=== PATIENT | female | born 1965 ===

== ENCOUNTER 2016-12-03 12:32 | Inpatient (IN) | payer MEDICAID ==
[2016-11-21 12:35] VITALS: BMI 28.3
[2016-12-03] MEDS ORDERED: ceFAZolin IV 1 gm in Dextrose 1 GM/50 ML BAG IVPB ONE ×2 (12:42→13:43)
[2016-12-03] MEDS ORDERED: HEPARIN-NS 5,000 UNITS/500 ML 5,000 UNIT/500 ML BAG IV ONE (12:42)
[2016-12-03] MEDS ORDERED: Remifentanil 1 mg/3 ml Vial IV ONE (13:15)
[2016-12-03] MEDS ORDERED: Midazolam 2 MG/2 ML VIAL ONE (13:17)
[2016-12-03] MEDS ORDERED: Propofol 10 mg/ml Inj (20 ML) ONE ×2 (13:17→14:02)
[2016-12-03] MEDS ORDERED: Lidocaine 1% Inj (20ml) ONE (13:43)
[2016-12-03] MEDS ORDERED: HYDROmorphone 0.5 mg/0.5 ml ISec IVP PRN (16:56)
[2016-12-03] MEDS ORDERED: Sodium Chloride 0.9% 500 ML IV SCH (18:14)
[2016-12-03] MEDS ORDERED: Oxycodone/Acetaminophen 5/325 mg Tab PO PRN (18:14)
--- NOTE | 2016-12-03 20:51 | CP.PCM.CON ---
History of Present Illness - History of Present Illness History of Present Illness: CCM 51 yo female with hx HTN /HLD /Depression /Prior Suicide attempt /Asthma /TIA found with carotid stenosis and today had elective R CEA. Pt seen in ICU post- op admits right neck pain. Denied chest pain /sob /nausea.Pt had negative stress test pre-op. ROS- as noted All- ibuprofen Social-+ tob/ Denied etoh or drugs Meds- reviewed FH- Unknown PE T-98 P-84 R-13 BP 125/75 Alert female, nad Neck- R dressing intact Lungs- bilat bs Heart-rr BAd- benign eXt- no edema, nontender Neuro- nonfocal Labs,EKG,x-rays reviewed A&P s/p R CEA HTN HLD Asthma Hx TIA Depression cont meds analgesia prn monitor BP Incentive Spirometry smoking Cessation Surgery f/u DVT prophylaxis Past Patient History - Infectious Disease Hx of Infectious Diseases: None - Past Medical History & Family History Past Medical History?: Yes - Past Social History Smoking Status: Heavy Smoker > 10 Cigarettes Daily - CARDIAC Hx Cardiac Disorders: Yes Other/Comment: carotid stenosis right - PULMONARY Hx Respiratory Disorders: Yes Hx Asthma: Yes (was hospialized 3 years ago) - NEUROLOGICAL Hx Neurological Disorder: Yes Hx Dizziness: Yes Hx Syncope: Yes - RENAL Hx Kidney Stones: Yes Other/Comment: patient states that she was told to follow up with kidney doctor by primary doctor because of pain in kidneys - MUSCULOSKELETAL/RHEUMATOLOGICAL Hx Musculoskeletal Disorders: Yes Hx Arthritis: Yes Hx Back Pain: Yes Hx Falls: No Hx Herniated Disk: Yes (cervical thoraic lummbar) - GASTROINTESTINAL Hx Gastrointestinal Disorders: Yes Hx Gastritis: Yes Hx Gastroesophageal Reflux: Yes - GENITOURINARY/GYNECOLOGICAL Hx Genitourinary Disorders: Yes Hx Hematuria: Yes - PSYCHIATRIC Hx Substance Use: No - SURGICAL HISTORY Hx Surgeries: Yes Hx Appendectomy: Yes Hx Section: Yes Hx Orthopedic Surgery: Yes (right foot) Hx Tubal Ligation: Yes Other/Comment: tiubal ligation - ANESTHESIA Hx Anesthesia: Yes Hx Anesthesia Reactions: No Hx Malignant Hyperthermia: No Has any member of the family had a problem w/ anesthesia?: No Meds Allergies/Adverse Reactions: Allergies Allergy/AdvReac Type Severity Reaction Status Date / Time ibuprofen Allergy NAUSEA Verified 09/18/16 22:14 - Medications Medications: Current Medications Aspirin (Ecotrin) 325 mg PO DAILY ESTEPHANIA Hydromorphone HCl (Dilaudid) 0.5 mg IVP Q15M PRN PRN Reason: Pain, severe (8-10) Cefazolin Sodium/Dextrose (Ancef Iv 1 Gm Duplex) 1 gm in 50 mls @ 100 mls/hr IVPB Q8 ESTEPHANIA Stop: 12/04/16 06:29 Sodium Chloride (Sodium Chloride 0.9%) 500 mls @ 80 mls/hr IV .Q6H15M [facility] Oxycodone/Acetaminophen (Percocet 5/325 Mg Tab) 2 tab PO Q4H PRN PRN Reason: Pain, Mild (1-3) Stop: 12/06/16 18:15 Results - Vital Signs Recent Vital Signs: Last Vital Signs Temp 98 F 12/03/16 19:30 Pulse 80 12/03/16 20:11 Resp 12 12/03/16 20:00 BP 131/57 L 12/03/16 20:00 Pulse Ox 99 12/03/16 20:00 - Labs Labs: Laboratory Results - last 24 hr 12/03/16 13:05 Blood Type O POSITIVE Antibody Screen Negative Assessment & Plan (1) S/P carotid endarterectomy Status: Acute (2) HTN (hypertension) Status: Chronic (3) HLD (hyperlipidemia) Status: Chronic (4) Depression Status: Chronic Priority: High
[2016-12-03] MEDS: Sodium Chloride 0.9% 1,000 ML IV SCH (21:18)
[2016-12-03 21:35] LABS: BASO % 0.2 % (0.0-2.0); MEAN CELL VOLUME 88.5 fL (81.0-99.0)
[2016-12-03 21:39] LABS: CHLORIDE 101 mmol/L (98-107); HEMATOCRIT 33.7 % (34.0-47.0); LYMPH # 1.5 K/uL (1.0-4.3); LYMPH % 6.5 % (20.0-40.0); MEAN CORPUSCULAR HEMOGLOBIN 28.9 pg (27.0-31.0); MEAN CORPUSCULAR HGB CONC 32.7 g/dL (33.0-37.0); MEAN PLATELET VOLUME 6.9 fL (7.2-11.7); MONO % 4.5 % (0.0-10.0); PLATELET COUNT 372 K/uL (130-400); POTASSIUM 4.2 mmol/L (3.6-5.2); SODIUM 131 mmol/L (132-148)
[2016-12-03 21:42] LABS: BLOOD UREA NITROGEN 12 mg/dL (7-17); CARBON DIOXIDE 23 mmol/L (22-30); GFR AFRICAN-AMERICAN > 60
[2016-12-03 21:43] LABS: CALCIUM 7.5 mg/dl (8.6-10.4); GLUCOSE,RANDOM 154 mg/dL (65-105)
[2016-12-03 22:07] LABS: NEUTROPHIL 83 % (50-75); TOTAL CELLS COUNTED 100
[2016-12-03] MEDS: ceFAZolin IV 1 gm in Dextrose 1 GM/50 ML BAG IVPB SCH (22:44)
[2016-12-04] MEDS: Pantoprazole 40 mg EC Tab PO SCH ×2 (06:04→10:55)
[2016-12-04] MEDS: ceFAZolin IV 1 gm in Dextrose 1 GM/50 ML BAG IVPB SCH (06:05)
[2016-12-04] MEDS: Oxycodone/Acetaminophen 5/325 mg Tab PO PRN (06:10)
[2016-12-04 06:49] LABS: BASO # 0.1 K/uL (0.0-0.2); BASO % 0.5 % (0.0-2.0); EOS % 0.1 % (0.0-4.0); HEMATOCRIT 31.3 % (34.0-47.0); LYMPH # 2.5 K/uL (1.0-4.3); LYMPH % 15.5 % (20.0-40.0); MEAN CELL VOLUME 87.7 fL (81.0-99.0); MEAN CORPUSCULAR HGB CONC 34.2 g/dL (33.0-37.0); MEAN PLATELET VOLUME 6.9 fL (7.2-11.7); MONO % 6.2 % (0.0-10.0); RED CELL DISTRIBUTION WIDTH 13.9 % (11.5-14.5); WHITE BLOOD COUNT 15.8 K/uL (4.8-10.8)
[2016-12-04 06:57] LABS: CHLORIDE 100 mmol/L (98-107); POTASSIUM 4.2 mmol/L (3.6-5.2); SODIUM 132 mmol/L (132-148)
[2016-12-04 06:59] LABS: ALB/GLOB RATIO 1.1 (1.0-2.1); AST/SGOT 27 U/L (14-36); BILIRUBIN,TOTAL 0.8 mg/dL (0.2-1.3); CARBON DIOXIDE 25 mmol/L (22-30); GFR AFRICAN-AMERICAN > 60; TOTAL PROTEIN 6.1 g/dL (6.3-8.3)
--- NOTE | 2016-12-04 06:59 | OP ---
PROCEDURE DATE: 12/03/2016 PREOPERATIVE DIAGNOSIS: Right carotid stenosis. POSTOPERATIVE DIAGNOSIS: Right carotid stenosis. PROCEDURE PERFORMED: Right carotid endarterectomy. SURGEON: Jose Christianson MD LEVEL VIAL INSPECTOR AND TESTER: DANAE Tavares. ESTIMATED BLOOD LOSS: 250 mL. POSTOPERATIVE CONDITION: Stable. INDICATIONS FOR SURGERY: This is a 51-year-old female found to have high-grade right carotid stenosi s with symptoms including syncope. After preoperative workup by her special delivery messenger, she has been clear ed for a right carotid endarterectomy. GROSS FINDINGS: The procedure was complicated by a very high carotid bifurcation. The neck had to b e dissected proximally very high, including division of the digastric muscles and several blood vesse ls. The hypoglossal nerve was identified and preserved, although it often had to be protected during dissection. The internal carotid plaque was noted to extend distally, so a large portion of the int ernal carotid artery had to be dissected high into the neck in order to successfully accomplish the p rocedure. Basically, the dissection went well. Only 1 time did we encounter bleeding which was cont rolled with ligation. A LeMaitre patch was used to close the carotid. The procedure took approximat donovan 3-1/2 hours due mainly to the extensive dissection in order for good exposure. DESCRIPTION OF PROCEDURE: The patient was taken to the operating room. General anesthesia was admin istered. An arterial line was placed in the left wrist and the right neck was extended, prepped and draped. A standard neck exploration was made from just below the angle of the mandible all the way t o near the clavicle and along the anterior border of the sternocleidomastoid muscle. The common fenton tid artery was carefully dissected free proximally. It was found to be of very small caliber. It wa s then traced distally all the way to near the angle of the mandible. All blood vessels were divided between clamps using 3-0 and 4-0 silk ties and 4-0 silk ligatures. The digastric muscle belly also had to be divided between silk. The common carotid, external carotid, internal carotid and superior thyroid artery were all dissected free. The superior thyroid artery was looped with silk and the ext ernal carotid was found to be of small caliber and looped with a VessiLoop. Umbilical tape was place d around the common and internal carotid arteries. Heparin was then administered. Clamps were first placed on the internal carotid and then the remaining groups were occluded and a large clamp was tres lubna on the common. The common carotid was then opened using an 11 blade and Whitaker scissor onto the i nternal carotid. It had to be opened quite distally in order to completely encompass the large plaqu e. An [place] shunt was first placed proximally and then distally and secured with Rumel tourniquets. An endarterectomy using a [place] dissector was then carefully done, first proximally and then distal ly into the internal carotid. The plaque was eventually delivered and tacking sutures of 7-0 Prolene were placed distally in the internal carotid intima interface. The opened artery intima was then fl ushed with heparinized saline and any remaining loose plaque collections were extensively removed. O nce the vessel had been adequately cleaned and the proximal plaque was trimmed in the common carotid, a LeMaitre patch was then selected and sutured in place with a running 6-0 Prolene suture. Near the end of the suturing, the [place] shunt was removed and the artery was clamped. The remainder of the artery was sewn closed with a running 6-0 and the clamps were removed. There was some bleeding still in the carotid and through digital clamping of the common, enough control was obtained in order to m emerald the patch hemostatic using 6-0 Prolene sutures. Once the patch was hemostatic, there was then no trina to be some bleeding proximally from a loose vein and this was clamped and ligated with 3-0 silk. The neck was then irrigated with copious amounts of saline solution. It should be noted that, in or ericka to gain more distal exposure in the neck of the internal carotid, a part of the parotid had to be divided using the Bovie with careful attention to avoid injury of the facial nerve. Utilizing an ad jacent tissue transfer closure, several layers of heavy Vicryl were used and the distal lobe of the p arotid was reapproximated also using Monocryl. The anterior border of the sternocleidomastoid was cl osed with a running heavy Monocryl. The subcutaneous tissue was mobilized and closed with Monocryl a nd loosely with clips. The remaining portion of the wound was closed with Steri-Strips and Mastisol solution. A Bryant drain was left near the chest and brought out through a lateral stab wound prior to closure. The patient tolerated procedure well, returned to recovery room in stable condition. Jose Christianson MD cc: [id number] TT: 12/04/2016 06:59:17 tn
[2016-12-04 07:00] LABS: ALKALINE PHOSPHATASE 50 U/L (38-126); ALT/SGPT 22 U/L (9-52); BLOOD UREA NITROGEN 10 mg/dL (7-17); CALCIUM 7.5 mg/dl (8.6-10.4); GLUCOSE,RANDOM 118 mg/dL (65-105); MAGNESIUM 1.6 mg/dL (1.6-2.3); PHOSPHOROUS 3.4 mg/dL (2.5-4.5)
--- NOTE | 2016-12-04 08:30 | RAD ---
PROCEDURE: Limited chest radiograph HISTORY: R/O FB IN OR MISSING NEEDLE FROM TRAY COMPARISON: 10/18/2016 TECHNIQUE: Single AP radiograph of the neck and upper thorax FINDINGS: No radiopaque foreign body is identified on this single film. An error tracheal tube is noted above the tracheal vernon. Surgical lakesha are noted on the right side of the neck. A surgical drain is seen overlying the right lung apex/lower right neck. IMPRESSION: No radiopaque foreign body identified.
[2016-12-04] MEDS ORDERED: Albuterol-Ipratrop 3 mg / 0.5 (3 ml) UD INH PRN (09:34)
[2016-12-04] MEDS: SYMBICORT INH SCH ×2 (11:00→22:36)
[2016-12-04] MEDS: Aspirin 325 mg EC Tablets PO SCH (11:00)
--- NOTE | 2016-12-04 11:16 | CP.PCM.CON ---
History of Present Illness - History of Present Illness History of Present Illness: 51-year-old lady with history of hypertension and mixed hyperlipidemia, was admitted electively for carotid endarterectomy that was done yesterday was no complication. Prior to the surgery she underwent a stress test and echocardiogram at [facility]. It was with no ischemia and ejection fraction about 70% no aortic stenosis. Currently in the intensive care unit postop doing well, pain management and follow-up by surgery. Review of Systems - Constitutional Constitutional: Anorexia, Weakness - EENT Eyes: absent: Discharge Ears: absent: Ear Discharge, Dizziness Nose/Mouth/Throat: absent: Epistaxis - Cardiovascular Cardiovascular: absent: Acrocyanosis, Chest Pain, Diaphoresis, Leg Edema, Palpitations, Syncope - Respiratory Respiratory: absent: Cough, Dyspnea, Hemoptysis - Gastrointestinal Gastrointestinal: absent: Abdominal Pain, Diarrhea, Vomiting - Genitourinary Genitourinary: absent: Change in Urinary Stream Past Patient History - Infectious Disease Hx of Infectious Diseases: None - Past Medical History & Family History Past Medical History?: Yes - Past Social History Smoking Status: Heavy Smoker > 10 Cigarettes Daily - CARDIAC Hx Cardiac Disorders: Yes Other/Comment: carotid stenosis right - PULMONARY Hx Respiratory Disorders: Yes Hx Asthma: Yes (was hospialized 3 years ago) - NEUROLOGICAL Hx Neurological Disorder: Yes Hx Dizziness: Yes Hx Syncope: Yes - RENAL Hx Kidney Stones: Yes Other/Comment: patient states that she was told to follow up with kidney doctor by primary doctor because of pain in kidneys - MUSCULOSKELETAL/RHEUMATOLOGICAL Hx Musculoskeletal Disorders: Yes Hx Arthritis: Yes Hx Back Pain: Yes Hx Falls: No Hx Herniated Disk: Yes (cervical thoraic lummbar) - GASTROINTESTINAL Hx Gastrointestinal Disorders: Yes Hx Gastritis: Yes Hx Gastroesophageal Reflux: Yes - GENITOURINARY/GYNECOLOGICAL Hx Genitourinary Disorders: Yes Hx Hematuria: Yes - PSYCHIATRIC Hx Substance Use: No - SURGICAL HISTORY Hx Surgeries: Yes Hx Appendectomy: Yes Hx Section: Yes Hx Orthopedic Surgery: Yes (right foot) Hx Tubal Ligation: Yes Other/Comment: tiubal ligation - ANESTHESIA Hx Anesthesia: Yes Hx Anesthesia Reactions: No Hx Malignant Hyperthermia: No Has any member of the family had a problem w/ anesthesia?: No Meds Allergies/Adverse Reactions: Allergies Allergy/AdvReac Type Severity Reaction Status Date / Time ibuprofen Allergy NAUSEA Verified 09/18/16 22:14 - Medications Medications: Current Medications Acetaminophen (Tylenol 325mg Tab) 650 mg PO Q4 PRN PRN Reason: Pain, Mild (1-3) Last Admin: 12/04/16 02:28 Dose: 650 mg Aspirin (Ecotrin) 325 mg PO DAILY [facility] Last Admin: 12/04/16 11:00 Dose: 325 mg Home Med (Patient's Own Inhalation Solution) 1 ml INH RBID [facility] Last Admin: 12/04/16 11:00 Dose: 1 ml Hydromorphone HCl (Dilaudid) 0.5 mg IVP Q15M PRN PRN Reason: Pain, severe (8-10) Last Admin: 12/03/16 19:00 Dose: 0.5 mg Sodium Chloride (Sodium Chloride 0.9%) 1,000 mls @ 80 mls/hr IV .[id number] [facility] Last Admin: 12/03/16 21:18 Dose: 80 mls/hr Lorazepam (Ativan) 1 mg PO TID PRN PRN Reason: Anxiety Oxycodone/Acetaminophen (Percocet 5/325 Mg Tab) 1 tab PO Q4H PRN PRN Reason: Pain, moderate (4-7) Stop: 12/06/16 21:47 Last Admin: 12/04/16 06:10 Dose: 1 tab Pantoprazole Sodium (Protonix Ec Tab) 40 mg PO DAILY [facility] Last Admin: 12/04/16 10:55 Dose: Not Given Quetiapine Fumarate (Seroquel) 50 mg PO HS PRN PRN Reason: Insomnia Thiamine HCl (Vitamin B1 Tab) 100 mg PO DAILY [facility] Last Admin: 12/04/16 10:59 Dose: 100 mg Physical Exam - Constitutional Appears: Non-toxic - Head Exam Head Exam: ATRAUMATIC - Eye Exam Eye Exam: EOMI - ENT Exam ENT Exam: Mucous Membranes Moist - Neck Exam Neck exam: Negative for: Lymphadenopathy, Thyromegaly - Respiratory Exam Respiratory Exam: Clear to Auscultation Bilateral. absent: Rales, Wheezes - Cardiovascular Exam Cardiovascular Exam: REGULAR RHYTHM. absent: Systolic Murmur - GI/Abdominal Exam GI & Abdominal Exam: Normal Bowel Sounds. absent: Organomegaly - Rectal Exam Rectal Exam: Deferred - Extremities Exam Extremities exam: Positive for: normal capillary refill. Negative for: calf tenderness - Neurological Exam Neurological exam: Alert, Oriented x3 - Psychiatric Exam Psychiatric exam: Anxious - Skin Skin Exam: Dry Results - Vital Signs Recent Vital Signs: Last Vital Signs Temp 98.2 F 12/04/16 00:00 Pulse 76 12/04/16 07:00 Resp 12 12/04/16 07:00 BP 139/74 12/04/16 06:00 Pulse Ox 94 L 12/04/16 07:00 - Labs Result Diagrams: 12/04/16 06:41 12/04/16 06:41 Labs: Laboratory Results - last 24 hr 12/03/16 12/03/16 12/03/16 13:05 21:28 21:28 WBC 23.0 H D RBC 3.81 Hgb 11.0 D Hct 33.7 L MCV 88.5 MCH 28.9 MCHC 32.7 L RDW 14.0 Plt Count 372 MPV 6.9 L Neut % (Auto) 88.8 H Lymph % (Auto) 6.5 L [place] % (Auto) 4.5 Eos % (Auto) 0.0 Baso % (Auto) 0.2 Neut # 20.4 H Lymph # 1.5 [place] # 1.0 H Eos # 0.0 Baso # 0.0 Neutrophils % (Manual) 83 H Band Neutrophils % 7 H Lymphocytes % (Manual) 6 L Monocytes % (Manual) 4 Platelet Estimate Normal Sodium 131 L Potassium 4.2 Chloride 101 Carbon Dioxide 23 Anion Gap 11 BUN 12 Creatinine 0.7 Est GFR ( Amer) > 60 Est GFR (Non-Af Amer) > 60 Random Glucose 154 H Calcium 7.5 L Phosphorus Magnesium Total Bilirubin AST ALT Alkaline Phosphatase Total Protein Albumin Globulin Albumin/Globulin Ratio Blood Type O POSITIVE Antibody Screen Negative 12/04/16 12/04/16 06:41 06:41 WBC 15.8 H RBC 3.57 L Hgb 10.7 L Hct 31.3 L MCV 87.7 MCH 30.0 MCHC 34.2 RDW 13.9 Plt Count 317 MPV 6.9 L Neut % (Auto) 77.7 H Lymph % (Auto) 15.5 L [place] % (Auto) 6.2 Eos % (Auto) 0.1 Baso % (Auto) 0.5 Neut # 12.3 H Lymph # 2.5 [place] # 1.0 H Eos # 0.0 Baso # 0.1 Neutrophils % (Manual) Band Neutrophils % Lymphocytes % (Manual) Monocytes % (Manual) Platelet Estimate Sodium 132 Potassium 4.2 Chloride 100 Carbon Dioxide 25 Anion Gap 12 BUN 10 Creatinine 0.6 L Est GFR ( Amer) > 60 Est GFR (Non-Af Amer) > 60 Random Glucose 118 H Calcium 7.5 L Phosphorus 3.4 Magnesium 1.6 Total Bilirubin 0.8 AST 27 ALT 22 Alkaline Phosphatase 50 Total Protein 6.1 L Albumin 3.2 L Globulin 2.9 Albumin/Globulin Ratio 1.1 Blood Type Antibody Screen Assessment & Plan (1) S/P carotid endarterectomy Status: Acute (2) HLD (hyperlipidemia) Status: Chronic (3) HTN (hypertension) Status: Chronic
[2016-12-04] MEDS: Sodium Chloride 0.9% 1,000 ML IV SCH ×2 (12:13→22:37)
--- NOTE | 2016-12-04 14:00 | CP.CCUPN ---
<Prashant Curry - Last Filed: 12/04/16 14:02> CCU Subjective - Physician Review Subjective (Free Text): 12/04/16 13:55 PGY-1 ICU progress note Pt seen and examined at bedside. POD#1 from R CEA. Admits to some pain but states its tolerable. Denies fevers, chills, chest pain, sob, nausea or vomiting. Critical Care Time Spent (in minutes): 35 CCU Objective - Vital Signs / Intake & Output Intake and Output (Last 8hrs): Intake & Output 12/03/16 12/04/16 12/04/16 22:59 06:59 14:59 Intake Total 510 660 475 Output Total 550 330 655 Balance -40 330 -180 Intake: IV 350 Intake, IV Amount 160 660 400 Left Hand 320 Right Antecubital 160 660 80 Oral 75 Output: Urine 550 330 655 Urethral (Umaña) 250 330 655 Other: Voiding Method Indwelling Catheter - Physical Exam Head: Positive for: Atraumatic, Normocephalic Pupils: Positive for: PERRL Neck: Positive for: Other (bandage in place. C/D/I) Respiratory/Chest: Positive for: Clear to Auscultation, Good Air Exchange Cardiovascular: Positive for: Normal S1, S2 Abdomen: Positive for: Normal Bowel Sounds. Negative for: Tenderness, Distention Upper Extremity: Positive for: NORMAL PULSES, Neurovascularly Intact Lower Extremity: Positive for: NORMAL PULSES, Neurovascularly Intact Neurological: Positive for: Speech Normal, Motor Func Grossly Intact Skin: Positive for: Warm, Dry Psychiatric: Positive for: Alert, Oriented x 3 - Medications Active Medications: Active Medications Generic Name Dose Route Start Last Admin Trade Name Freq PRN Reason Stop Dose Admin Acetaminophen 650 mg 12/03/16 22:04 12/04/16 12:05 Tylenol 325mg Tab PO 650 mg Q4 PRN Administration Pain, Mild (1-3) Aspirin 325 mg 12/04/16 10:00 12/04/16 11:00 Ecotrin PO 325 mg DAILY ESTEPHANIA Administration Home Med 1 ml 12/04/16 10:30 12/04/16 11:00 Patient's Own Inhalation Solution INH 1 ml RBID ESTEPHANIA Administration Hydromorphone HCl 0.5 mg 12/03/16 16:56 12/03/16 19:00 Dilaudid IVP 0.5 mg Q15M PRN Administration Pain, severe (8-10) Sodium Chloride 1,000 mls @ 80 mls/hr 12/03/16 21:15 12/04/16 12:13 Sodium Chloride 0.9% IV 80 mls/hr .[id number] ESTEPHANIA Administration Lorazepam 1 mg 12/03/16 23:50 Ativan PO TID PRN Anxiety Oxycodone/Acetaminophen 1 tab 12/03/16 21:46 12/04/16 06:10 Percocet 5/325 Mg Tab PO 12/06/16 21:47 1 tab Q4H PRN Administration Pain, moderate (4-7) Pantoprazole Sodium 40 mg 12/04/16 10:00 12/04/16 10:55 Protonix Ec Tab PO Not Given DAILY ESTEPHANIA Quetiapine Fumarate 50 mg 12/03/16 23:49 Seroquel PO HS PRN Insomnia Thiamine HCl 100 mg 12/04/16 10:00 12/04/16 10:59 Vitamin B1 Tab PO 100 mg DAILY ESTEPHANIA Administration - Patient Studies Lab Studies: Lab Studies 12/04/16 12/04/16 12/03/16 Range/Units 06:41 06:41 21:28 WBC 15.8 H 23.0 H D (4.8-10.8) K/uL RBC 3.57 L 3.81 (3.80-5.20) Mil/uL Hgb 10.7 L 11.0 D (11.0-16.0) g/dL Hct 31.3 L 33.7 L (34.0-47.0) % MCV 87.7 88.5 (81.0-99.0) fL MCH 30.0 28.9 (27.0-31.0) pg MCHC 34.2 32.7 L (33.0-37.0) g/dL RDW 13.9 14.0 (11.5-14.5) % Plt Count 317 372 (130-400) K/uL MPV 6.9 L 6.9 L (7.2-11.7) fL Neut % (Auto) 77.7 H 88.8 H (50.0-75.0) % Lymph % (Auto) 15.5 L 6.5 L (20.0-40.0) % [place] % (Auto) 6.2 4.5 (0.0-10.0) % Eos % (Auto) 0.1 0.0 (0.0-4.0) % Baso % (Auto) 0.5 0.2 (0.0-2.0) % Neut # 12.3 H 20.4 H (1.8-7.0) K/uL Lymph # 2.5 1.5 (1.0-4.3) K/uL [place] # 1.0 H 1.0 H (0.0-0.8) K/uL Eos # 0.0 0.0 (0.0-0.7) K/uL Baso # 0.1 0.0 (0.0-0.2) K/uL Neutrophils % (Manual) 83 H (50-75) % Band Neutrophils % 7 H (0-2) % Lymphocytes % (Manual) 6 L (20-40) % Monocytes % (Manual) 4 (0-10) % Platelet Estimate Normal (NORMAL) Sodium 132 (132-148) mmol/L Potassium 4.2 (3.6-5.2) mmol/L Chloride 100 (98-107) mmol/L Carbon Dioxide 25 (22-30) mmol/L Anion Gap 12 (10-20) BUN 10 (7-17) mg/dL Creatinine 0.6 L (0.7-1.2) MG/DL Est GFR ( Amer) > 60 Est GFR (Non-Af Amer) > 60 Random Glucose 118 H (65-105) mg/dL Calcium 7.5 L (8.6-10.4) mg/dl Phosphorus 3.4 (2.5-4.5) mg/dL Magnesium 1.6 (1.6-2.3) mg/dL Total Bilirubin 0.8 (0.2-1.3) mg/dL AST 27 (14-36) U/L ALT 22 (9-52) U/L Alkaline Phosphatase 50 (38-126) U/L Total Protein 6.1 L (6.3-8.3) g/dL Albumin 3.2 L (3.5-5.0) g/dL Globulin 2.9 (2.2-3.9) gm/dL Albumin/Globulin Ratio 1.1 (1.0-2.1) Blood Type Antibody Screen 12/03/16 12/03/16 Range/Units 21:28 13:05 WBC (4.8-10.8) K/uL RBC (3.80-5.20) Mil/uL Hgb (11.0-16.0) g/dL Hct (34.0-47.0) % MCV (81.0-99.0) fL MCH (27.0-31.0) pg MCHC (33.0-37.0) g/dL RDW (11.5-14.5) % Plt Count (130-400) K/uL MPV (7.2-11.7) fL Neut % (Auto) (50.0-75.0) % Lymph % (Auto) (20.0-40.0) % [place] % (Auto) (0.0-10.0) % Eos % (Auto) (0.0-4.0) % Baso % (Auto) (0.0-2.0) % Neut # (1.8-7.0) K/uL Lymph # (1.0-4.3) K/uL [place] # (0.0-0.8) K/uL Eos # (0.0-0.7) K/uL Baso # (0.0-0.2) K/uL Neutrophils % (Manual) (50-75) % Band Neutrophils % (0-2) % Lymphocytes % (Manual) (20-40) % Monocytes % (Manual) (0-10) % Platelet Estimate (NORMAL) Sodium 131 L (132-148) mmol/L Potassium 4.2 (3.6-5.2) mmol/L Chloride 101 (98-107) mmol/L Carbon Dioxide 23 (22-30) mmol/L Anion Gap 11 (10-20) BUN 12 (7-17) mg/dL Creatinine 0.7 (0.7-1.2) MG/DL Est GFR ( Amer) > 60 Est GFR (Non-Af Amer) > 60 Random Glucose 154 H (65-105) mg/dL Calcium 7.5 L (8.6-10.4) mg/dl Phosphorus (2.5-4.5) mg/dL Magnesium (1.6-2.3) mg/dL Total Bilirubin (0.2-1.3) mg/dL AST (14-36) U/L ALT (9-52) U/L Alkaline Phosphatase (38-126) U/L Total Protein (6.3-8.3) g/dL Albumin (3.5-5.0) g/dL Globulin (2.2-3.9) gm/dL Albumin/Globulin Ratio (1.0-2.1) Blood Type O POSITIVE Antibody Screen Negative Laboratory Results - last 24 hr 12/03/16 12/03/16 12/03/16 13:05 21:28 21:28 WBC 23.0 H D RBC 3.81 Hgb 11.0 D Hct 33.7 L MCV 88.5 MCH 28.9 MCHC 32.7 L RDW 14.0 Plt Count 372 MPV 6.9 L Neut % (Auto) 88.8 H Lymph % (Auto) 6.5 L [place] % (Auto) 4.5 Eos % (Auto) 0.0 Baso % (Auto) 0.2 Neut # 20.4 H Lymph # 1.5 [place] # 1.0 H Eos # 0.0 Baso # 0.0 Neutrophils % (Manual) 83 H Band Neutrophils % 7 H Lymphocytes % (Manual) 6 L Monocytes % (Manual) 4 Platelet Estimate Normal Sodium 131 L Potassium 4.2 Chloride 101 Carbon Dioxide 23 Anion Gap 11 BUN 12 Creatinine 0.7 Est GFR ( Amer) > 60 Est GFR (Non-Af Amer) > 60 Random Glucose 154 H Calcium 7.5 L Phosphorus Magnesium Total Bilirubin AST ALT Alkaline Phosphatase Total Protein Albumin Globulin Albumin/Globulin Ratio Blood Type O POSITIVE Antibody Screen Negative 12/04/16 12/04/16 06:41 06:41 WBC 15.8 H RBC 3.57 L Hgb 10.7 L Hct 31.3 L MCV 87.7 MCH 30.0 MCHC 34.2 RDW 13.9 Plt Count 317 MPV 6.9 L Neut % (Auto) 77.7 H Lymph % (Auto) 15.5 L [place] % (Auto) 6.2 Eos % (Auto) 0.1 Baso % (Auto) 0.5 Neut # 12.3 H Lymph # 2.5 [place] # 1.0 H Eos # 0.0 Baso # 0.1 Neutrophils % (Manual) Band Neutrophils % Lymphocytes % (Manual) Monocytes % (Manual) Platelet Estimate Sodium 132 Potassium 4.2 Chloride 100 Carbon Dioxide 25 Anion Gap 12 BUN 10 Creatinine 0.6 L Est GFR ( Amer) > 60 Est GFR (Non-Af Amer) > 60 Random Glucose 118 H Calcium 7.5 L Phosphorus 3.4 Magnesium 1.6 Total Bilirubin 0.8 AST 27 ALT 22 Alkaline Phosphatase 50 Total Protein 6.1 L Albumin 3.2 L Globulin 2.9 Albumin/Globulin Ratio 1.1 Blood Type Antibody Screen EKG/Cardiology Studies: Cardiology / EKG Studies 12/04/16 18:15 ELECTROCARDIOGRAM DAILY Comment: Mode Of Transportation: Reason For Exam: SP Carotid Endarterwctomy 12/05/16 18:15 ELECTROCARDIOGRAM DAILY Comment: Mode Of Transportation: Reason For Exam: SP Carotid Endarterwctomy Review of Systems - Review of Systems All systems: reviewed and no additional remarkable complaints except (where noted in HPI) Critical Care Progress Note - Nutrition Nutrition: Nutrition Category Date Time Status Heart Healthy Diet [DIET] Diets 12/04/16 Lunch Active Assessment/Plan - Assessment and Plan (Free Text) Assessment: This is a 51 yo F POD#1 s/p right sided CEA. Plan: Pt doing well and hemodynamically stable. No overnight events. No bleeding. Labs unremarkable. Will transfer to med/surg. <Ugo Kirby S - Last Filed: 01/14/17 16:55> CCU Subjective - Physician Review Critical Care Time Spent (in minutes): 0 Critical Care Progress Note - Nutrition Nutrition: Nutrition Category Date Time Status Heart Healthy Diet [DIET] Diets 12/04/16 Lunch Active Attending/Attestation - Attestation I have personally seen and examined this patient.: Yes I have fully participated in the care of the patient.: Yes I have reviewed all pertinent clinical information: Yes Notes (Text): This is a 51 yo F POD#1 s/p right sided CEA. transfer to floor
[2016-12-05] MEDS: Oxycodone/Acetaminophen 5/325 mg Tab PO PRN ×4 (01:26→21:08)
[2016-12-05] MEDS: Aspirin 325 mg EC Tablets PO SCH (09:30)
[2016-12-05] MEDS: Pantoprazole 40 mg EC Tab PO SCH (09:30)
[2016-12-05] MEDS: Sodium Chloride 0.9% 1,000 ML IV SCH ×2 (14:05→23:15)
--- NOTE | 2016-12-05 14:21 | CP.PCM.PN ---
Subjective - Date & Time of Evaluation Date of Evaluation: 12/05/16 Time of Evaluation: 13:00 - Subjective Subjective: Out of bed ambulating, no weakness or neuro deficit, stable post carotid endarterectomy with pain. Follow up with surgery Objective - Vital Signs/Intake and Output Vital Signs (last 24 hours): Temp Pulse Resp BP Pulse Ox 98.2 F 103 H 18 146/90 96 12/05/16 07:05 12/05/16 13:35 12/05/16 07:05 12/05/16 13:35 12/05/16 07:05 Intake and Output: 12/05/16 12/05/16 06:59 18:59 Intake Total 1040 720 Balance 1040 720 - Medications Medications: Current Medications Acetaminophen (Tylenol 325mg Tab) 650 mg PO Q4 PRN PRN Reason: Pain, Mild (1-3) Last Admin: 12/05/16 05:20 Dose: 650 mg Aspirin (Ecotrin) 325 mg PO DAILY [facility] Last Admin: 12/05/16 09:30 Dose: 325 mg Home Med (Patient's Own Inhalation Solution) 1 ml INH RBID [facility] Last Admin: 12/04/16 22:36 Dose: 1 ml Hydromorphone HCl (Dilaudid) 0.5 mg IVP Q15M PRN PRN Reason: Pain, severe (8-10) Last Admin: 12/03/16 19:00 Dose: 0.5 mg Sodium Chloride (Sodium Chloride 0.9%) 1,000 mls @ 80 mls/hr IV .[id number] [facility] Last Admin: 12/05/16 14:05 Dose: Not Given Lorazepam (Ativan) 1 mg PO TID PRN PRN Reason: Anxiety Last Admin: 12/05/16 05:20 Dose: 1 mg Oxycodone/Acetaminophen (Percocet 5/325 Mg Tab) 1 tab PO Q4H PRN PRN Reason: Pain, moderate (4-7) Stop: 12/06/16 21:47 Last Admin: 12/05/16 09:30 Dose: 1 tab Pantoprazole Sodium (Protonix Ec Tab) 40 mg PO DAILY [facility] Last Admin: 12/05/16 09:30 Dose: 40 mg Quetiapine Fumarate (Seroquel) 50 mg PO HS PRN PRN Reason: Insomnia Thiamine HCl (Vitamin B1 Tab) 100 mg PO DAILY [facility] Last Admin: 12/05/16 09:31 Dose: 100 mg - Labs Labs: 12/04/16 06:41 12/04/16 06:41 - Constitutional Appears: Non-toxic - Head Exam Head Exam: ATRAUMATIC - Eye Exam Eye Exam: EOMI - ENT Exam ENT Exam: Mucous Membranes Moist - Neck Exam Neck Exam: absent: Lymphadenopathy, Thyromegaly - Respiratory Exam Respiratory Exam: Clear to Ausculation Bilateral. absent: Rales - Cardiovascular Exam Cardiovascular Exam: REGULAR RHYTHM, Murmur - GI/Abdominal Exam GI & Abdominal Exam: Normal Bowel Sounds. absent: Organomegaly - Rectal Exam Rectal Exam: Deferred - Extremities Exam Extremities Exam: Normal Capillary Refill. absent: Calf Tenderness - Neurological Exam Neurological Exam: Alert, Oriented x3 - Psychiatric Exam Psychiatric exam: Depressed - Skin Skin Exam: Dry Assessment and Plan (1) S/P carotid endarterectomy Status: Acute (2) HLD (hyperlipidemia) Status: Chronic (3) HTN (hypertension) Status: Chronic
[2016-12-05 16:14] VITALS: O2SAT 95
--- NOTE | 2016-12-05 22:56 | CARD ---
APPROVED REPORT EKG Measurement Heart [id number] <Conclusion> Normal sinus rhythm Normal ECG
[2016-12-06] MEDS ORDERED: Aluminum Hydroxide/Magnesium Hydroxide Susp (30 mL) PO PRN (00:16)
[2016-12-06 08:15] VITALS: BP 106/59; PULSE 89; RESP 18; TEMP 98.8
== END 2016-12-06 09:03 | disposition home or self-care (01) | DRG 839 ==
LOC: C.SDS 12:32 → C.9I 18:36 → C.6T 12-04 12:23
PROVIDERS: ADMIT Surgery; ATTEND Surgery
PROC: 03CK0ZZ Extirpation of Matter from Right Internal Carotid Artery, Open Approach (ICD-10-PCS; principal; 2016-12-03 14:00)
DX: I65.21 Occlusion and stenosis of right carotid artery (principal); I10 Essential (primary) hypertension; E78.2 Mixed hyperlipidemia; F32.9 Major depressive disorder, single episode, unspecified; J45.909 Unspecified asthma, uncomplicated; F17.210 Nicotine dependence, cigarettes, uncomplicated; Z86.73 Personal history of transient ischemic attack (TIA), and cerebral infarction without residual deficits; Z91.5 Personal history of self-harm

== ENCOUNTER 2016-12-17 11:49 | Emergency (ER) | payer MEDICAID ==
[2016-12-17 11:50] VITALS: BMI 28.3
[2016-12-17] MEDS ORDERED: Morphine 4 MG/ML VIAL ONE (13:30)
--- NOTE | 2016-12-17 13:31 | C.PDOC ---
History Of Present Illness 51 y/o female presents to ED with complaints of right side neck and face pain with headache unrelieved by Tylenol. Patient had a Carotid Endarterectomy on and was D/C home a few days after. She has had ongoing pain but worse past two days. She denies any numbness or weakness. Patient alsol denies fever , N/V/D, weakness or numbness. Time Seen by Provider: 12/17/16 12:39 Chief Complaint (Nursing): Medical Clearance History Per: Patient History/Exam Limitations: no limitations Onset/Duration Of Symptoms: Days Current Symptoms Are (Timing): Still Present Severity: Moderate Past Medical History Reviewed: Historical Data, Nursing Documentation, Vital Signs Vital Signs: Last Vital Signs Temp 97.8 F 12/17/16 16:54 Pulse 78 12/17/16 16:54 Resp 18 12/17/16 16:54 BP 113/72 12/17/16 16:54 Pulse Ox 100 12/17/16 17:38 - Medical History PMH: Anxiety, Arthritis, Asthma, Bipolar Disorder, Depression, Gastritis, Hypercholesterolemia, Kidney Stones Surgical History: Appendectomy, Carotid Endarterectomy - [facility] Procedures DX ULTRASOUND-HEART (01/21/15) EXTIRPATION OF MATTER FROM R INT CAROTID, OPEN APPROACH (12/03/16) GROUP PSYCHOTHERAPY (07/19/15) INDIVID PSYCHOTHERAP NEC (12/13/14) INDIVIDUAL PSYCHOTHERAPY, COGNITIVE-BEHAVIORAL (10/25/15) INDIVIDUAL PSYCHOTHERAPY, SUPPORTIVE (07/19/15) INJECT/INFUSE NEC (12/18/12) OTHER GROUP THERAPY (12/13/14) PSYCHIA INTERV/EVAL NEC (12/18/12) Family History: States: Unknown Family Hx - Social History Hx Tobacco Use: Yes Hx Alcohol Use: Yes Hx Substance Use: No Review Of Systems Constitutional: Negative for: Fever, Chills Cardiovascular: Negative for: Chest Pain Gastrointestinal: Negative for: Nausea, Vomiting, Diarrhea Musculoskeletal: Negative for: Neck Pain Neurological: Negative for: Weakness, Numbness Physical Exam - Physical Exam Appears: Non-toxic, No Acute Distress Skin: Normal Color, Warm Head: Atraumatic, Normacephalic Eye(s): bilateral: Normal Inspection, PERRL, EOMI Oral Mucosa: Moist Throat: Normal Neck: Normal ROM, Other (Extensive Right side, healing surgical scar, mild tenderness, no redness, no swelling) Cardiovascular: Rhythm Regular Respiratory: No Rales, No Rhonchi, No Wheezing Gastrointestinal/Abdominal: Soft, No Tenderness, No Guarding, No Rebound Extremity: Normal ROM Neurological/Psych: Oriented x3, Normal Speech, Normal Cognition, Normal Cranial Nerves, No Cerebellar Signs, Normal Motor ED Course And Treatment - Laboratory Results Result Diagrams: 12/17/16 13:34 12/17/16 13:34 O2 Sat by Pulse Oximetry: 100 (RA) Pulse Ox Interpretation: Normal - CT Scan/US Head CT/US Interpretation: Impression: Status post of right-sided carotid endarterectomy. There are surrounding soft tissue changes that may represent some on old postoperative residual hemorrhage and or granulation tissue which surrounds a good portion of the distal common carotid arteries, carotid bifurcation and proximal internal carotid artery as above. . Changes extend on about the surrounding tissues as above however there is no large hemorrhagic collection - hematoma. No evidence of contrast extravasation. The vessels are widely patent. These findings discussed with Dr. Mead at approximately 4: 23 p.m. with written down and read back verification. Medical Decision Making Medical Decision Making: Pain meds ordered Discussed with dr Christianson reports he had to do extensive dissection to expose the carotid, and recommended CTA to check for leaks or hematoma This was discussed with the pt CT ok pt seen by dr Cowart in the ED Plan dc home pain meds office f/u Disposition Counseled Patient/Family Regarding: Need For Followup - Disposition Referrals: Jose Christianson MD [Staff Provider] - Disposition: HOME/ ROUTINE Disposition Time: 17:34 Condition: GOOD Additional Instructions: Follow up with dr Ramos this week Prescriptions: oxyCODONE/Acetaminophen [Percocet 5/325 mg Tab] 1 tab PO Q4H PRN #30 tab PRN Reason: .severe pain Forms: General Discharge Instructions - Clinical Impression Clinical Impression: S/P carotid endarterectomy, Neck pain - Scribe Statement The provider has reviewed the documentation as recorded by the Damarisibmick Elizabeth All medical record entries made by the Scribe were at my direction and personally dictated by me. I have reviewed the chart and agree that the record accurately reflects my personal performance of the history, physical exam, medical decision making, and the department course for this patient. I have also personally directed, reviewed, and agree with the discharge instructions and disposition.
[2016-12-17 13:41] LABS: BASO # 0.1 K/uL (0.0-0.2); BASO % 1.1 % (0.0-2.0); EOS # 0.2 K/uL (0.0-0.7); EOS % 1.9 % (0.0-4.0); HEMATOCRIT 34.6 % (34.0-47.0); LYMPH # 2.8 K/uL (1.0-4.3); LYMPH % 21.7 % (20.0-40.0); MEAN CELL VOLUME 88.3 fL (81.0-99.0); MEAN CORPUSCULAR HEMOGLOBIN 28.9 pg (27.0-31.0); MEAN CORPUSCULAR HGB CONC 32.7 g/dL (33.0-37.0); MEAN PLATELET VOLUME 6.7 fL (7.2-11.7); MONO # 0.7 K/uL (0.0-0.8); MONO % 5.5 % (0.0-10.0); RED CELL DISTRIBUTION WIDTH 13.7 % (11.5-14.5); WHITE BLOOD COUNT 12.8 K/uL (4.8-10.8)
[2016-12-17 13:57] LABS: CHLORIDE 98 mmol/L (98-107); SODIUM 136 mmol/L (132-148)
[2016-12-17 13:58] LABS: POTASSIUM 4.3 mmol/L (3.6-5.2)
[2016-12-17 14:00] LABS: ALB/GLOB RATIO 1.3 (1.0-2.1); ALKALINE PHOSPHATASE 97 U/L (38-126); AST/SGOT 32 U/L (14-36); BILIRUBIN,TOTAL 0.5 mg/dL (0.2-1.3); BLOOD UREA NITROGEN 16 mg/dL (7-17); CALCIUM 9.2 mg/dl (8.6-10.4); CARBON DIOXIDE 27 mmol/L (22-30); GFR AFRICAN-AMERICAN > 60; GLUCOSE,RANDOM 93 mg/dL (65-105); TOTAL PROTEIN 7.4 g/dL (6.3-8.3)
[2016-12-17 14:01] LABS: ALT/SGPT 26 U/L (9-52)
[2016-12-17] MEDS ORDERED: Iodixanol 320 MG/ML 100 ML BOTTLE IV ONE (14:27)
--- NOTE | 2016-12-17 16:29 | CT ---
PROCEDURE: CT Angiography of the neck and brain dated 12/17/2016 HISTORY: s status post carotid surgery with facial pain and headache. COMPARISON: Correlation made with MRA neck 11/14/[address] scan brain 10/30/2016. Correlation also made with carotid Doppler exam dated 11/05/2016 TECHNIQUE: Contiguous helical/transaxial images of the neck were obtained from the level of the skull-base to the superior mediastinum in the arteriographic phase of enhancement. Coronal and sagittal reformats or also generated. IV contrast dose: 100 cc Visipaque 320 contrast material. Radiation Dose - DLP: 568.59 mGy-cm FINDINGS: Findings: Apparent n right internal carotid endarterectomy. . The right common carotid artery, carotid bifurcation and right internal carotid artery widely patent are some irregularities along the proximal margin of the distal of the right common carotid artery and proximal internal carotid artery internal carotid artery. . There appears to be some circumferential somewhat nonenhancing soft tissue density surrounding the mid and proximal internal carotid artery as well as the external carotid artery. No evidence of large hematoma. Soft tissue circumferentially also surrounds the distal and mid to lower common carotid artery. . There appears to be some extension into the right parapharyngeal fat space with soft tissue abutting the posterior margin of the right submandibular gland as well as medial margin of the deep lobe of the right parotid gland. Vague extension of changes abutting the anterior medial margin of the right sternocleidomastoid muscle. . These changes may represent some residual old postoperative hemorrhage and/or scarring -granulation tissue difficult to distinguish between the two. There is no evidence of a large hemorrhagic collection/hematoma. These changes do result in some effacement of surrounding subcutaneous fat and fascia planes however the. There may also be some minimal mass effect on the adjacent right medial margin of the lower oropharynx. No evidence of contrast extravasation. The left common carotid artery, carotid bifurcation and internal carotid artery widely patent. The distal internal carotids arteries including the petrous, cavernous and supraclinoid segments are patent. Both vertebral arteries are patent throughout. The visualized basilar artery and the remaining versus hoh Rg unremarkable. Lung apices are clear. Impression: Status post of right-sided carotid endarterectomy. There are surrounding soft tissue changes that may represent some on old postoperative residual hemorrhage and or granulation tissue which surrounds a good portion of the distal common carotid arteries, carotid bifurcation and proximal internal carotid artery as above. . Changes extend on about the surrounding tissues as above however there is no large hemorrhagic collection - hematoma. No evidence of contrast extravasation. The vessels are widely patent. These findings discussed with Dr. Mead at approximately 4:23 p.m. with written down and read back verification.
[2016-12-17 16:55] VITALS: BP 113/72; PULSE 78; RESP 18; TEMP 97.8
[2016-12-17] MEDS ORDERED: Oxycodone/Acetaminophen 5/325 mg Tab PO STA (17:16)
[2016-12-17 17:36] VITALS: O2SAT 100
[2016-12-17] MEDS ORDERED: Oxycodone/Acetaminophen 5/325 mg Tab ONE (17:36)
== END 2016-12-17 17:45 | disposition home or self-care (01) ==
LOC: C.ER 11:49
DX: M54.2 Cervicalgia (principal); Z98.890 Other specified postprocedural states
CPT/HCPCS: 70496; 70498; 80053; 85025; 96374; 99283; J2270; Q9967

== ENCOUNTER 2017-02-18 13:54 | Emergency (ER) | payer MEDICAID ==
[2017-02-18 13:54] VITALS: BMI 28.3
[2017-02-18 14:43] VITALS: BP 154/93; PULSE 98; RESP 20; TEMP 98.8; O2SAT 100
--- NOTE | 2017-02-18 15:13 | C.PDOC ---
History Of Present Illness 51 y/o female with Hx of ETOH abuse, Bipolar disorder and Overdose presents to ED with complaints of typical occipital headache. Patient states she took Tylenol and Ibuprofen at home earlier today. Patient states has no allergies to Ibuprofen but has occasional stomach upsets. No other complaints at this time. Time Seen by Provider: 02/18/17 15:02 Chief Complaint (Nursing): Headache History Per: Patient History/Exam Limitations: no limitations Onset/Duration Of Symptoms: Days Current Symptoms Are (Timing): Still Present Quality: "Pain" Past Medical History Reviewed: Historical Data, Nursing Documentation, Vital Signs Vital Signs: Last Vital Signs Temp 98.8 F 02/18/17 14:39 Pulse 98 H 02/18/17 14:39 Resp 20 02/18/17 14:39 BP 154/93 H 02/18/17 14:39 Pulse Ox 100 02/18/17 15:39 - Medical History PMH: Anxiety, Arthritis, Asthma, Bipolar Disorder, Depression, Gastritis, Hypercholesterolemia, Kidney Stones Surgical History: Appendectomy, Carotid Endarterectomy - [facility] Procedures DX ULTRASOUND-HEART (01/21/15) EXTIRPATION OF MATTER FROM R INT CAROTID, OPEN APPROACH (12/03/16) GROUP PSYCHOTHERAPY (07/19/15) INDIVID PSYCHOTHERAP NEC (12/13/14) INDIVIDUAL PSYCHOTHERAPY, COGNITIVE-BEHAVIORAL (10/25/15) INDIVIDUAL PSYCHOTHERAPY, SUPPORTIVE (07/19/15) INJECT/INFUSE NEC (12/18/12) OTHER GROUP THERAPY (12/13/14) PSYCHIA INTERV/EVAL NEC (12/18/12) Family History: States: Unknown Family Hx - Social History Hx Tobacco Use: Yes Hx Alcohol Use: Yes Hx Substance Use: No - Immunization History Hx Tetanus Toxoid Vaccination: No Hx Influenza Vaccination: No Hx Pneumococcal Vaccination: No Review Of Systems Except As Marked, All Systems Reviewed And Found Negative. Constitutional: Negative for: Fever, Chills Eyes: Negative for: Vision Change Gastrointestinal: Negative for: Nausea, Vomiting, Abdominal Pain, Diarrhea Skin: Negative for: Rash Neurological: Positive for: Headache. Negative for: Weakness, Numbness, Dizziness Physical Exam - Physical Exam Appears: Other (Sleeping) Skin: Normal Color, Warm, Dry, No Rash Head: Tenderness (Mild occipital trapezius ), No Swelling Eye(s): bilateral: Normal Inspection Oral Mucosa: Moist Neck: Normal ROM, Supple Cardiovascular: Rhythm Regular Respiratory: Normal Breath Sounds, No Rales, No Rhonchi, No Wheezing Gastrointestinal/Abdominal: Soft, No Tenderness, No Guarding, No Rebound Neurological/Psych: Oriented x3 ED Course And Treatment O2 Sat by Pulse Oximetry: 100 (RA) Pulse Ox Interpretation: Normal Reevaluation Time: 15:38 Reassessment Condition: Improved Medical Decision Making Medical Decision Making: typical headache, LOW susp of stroke/like headache inpt with resolved cartid dz NO ibuprofen allergy- provokes gastritis, but pt taking Motrin @ home, believing "ibuprofen" causes GI upset. continued alcohol use and anxiety- took her Ativan this AM Disposition Doctor Will See Patient In The: Office Counseled Patient/Family Regarding: Studies Performed, Diagnosis - Disposition Referrals: Kira Johnson MD [Medical Doctor] - Disposition: HOME/ ROUTINE Disposition Time: 15:39 Condition: GOOD Additional Instructions: continue Ibuprofen/Motrin 400-600 mg every 6 hours as needed Pepcid 20 mg @ night to prevent stomach irritation from the Motrin Alternate with Tylenol 1000 mg every 6 hours as needed. Continue your other regular meds. Follow-up with your PMD as needed Instructions: Acute Headache (ED) Forms: [employer] [facility] (Uzbek) - Clinical Impression Clinical Impression: Headache - Scribe Statement The provider has reviewed the documentation as recorded by the Israel Elizabeth All medical record entries made by the Damarisibmick were at my direction and personally dictated by me. I have reviewed the chart and agree that the record accurately reflects my personal performance of the history, physical exam, medical decision making, and the department course for this patient. I have also personally directed, reviewed, and agree with the discharge instructions and disposition.
== END 2017-02-18 15:49 | disposition home or self-care (01) ==
LOC: C.ER 13:54
DX: R51 Headache (principal)
CPT/HCPCS: 96372; 99285; J1885

== ENCOUNTER 2017-08-30 12:56 | Emergency (ER) | payer MEDICAID ==
[2017-08-30 12:56] VITALS: BMI 28.3
[2017-08-30 13:15] VITALS: O2SAT 100
--- NOTE | 2017-08-30 14:27 | C.PDOC ---
History Of Present Illness 52 years old female presents to ED with complaints of lower abdominal that began 3 days ago. Associated symptoms include frequent urination and vaginal discharge. Denies dysuria. Patient states she noticed a tinge of blood to her urine today which promoted the ED visit. Patient also reports right flank pain today. Time Seen by Provider: 08/30/17 13:31 Chief Complaint (Nursing): Abdominal Pain History Per: Patient History/Exam Limitations: no limitations Onset/Duration Of Symptoms: Days (3) Current Symptoms Are (Timing): Still Present Location Of Pain/Discomfort: RLQ, LLQ, Suprapubic Radiation Of Pain To:: None Quality Of Discomfort: Unable To Describe Associated Symptoms: Urinary Symptoms. denies: Fever, Chills, Nausea, Vomiting , Diarrhea Exacerbating Factors: None Alleviating Factors: None Recent travel outside of the [place]: No Abnormal Vaginal Bleeding: No Past Medical History Reviewed: Historical Data, Nursing Documentation, Vital Signs Vital Signs: Last Vital Signs Temp 98.6 F 08/30/17 15:22 Pulse 78 08/30/17 15:22 Resp 20 08/30/17 15:22 BP 135/80 08/30/17 15:22 Pulse Ox 100 08/30/17 15:22 - Medical History PMH: Anxiety, Arthritis, Asthma, Bipolar Disorder, Depression, Gastritis, Hypercholesterolemia, Kidney Stones Surgical History: Appendectomy, Carotid Endarterectomy - [facility] Procedures DX ULTRASOUND-HEART (01/21/15) EXTIRPATION OF MATTER FROM R INT CAROTID, OPEN APPROACH (12/03/16) GROUP PSYCHOTHERAPY (07/19/15) INDIVID PSYCHOTHERAP NEC (12/13/14) INDIVIDUAL PSYCHOTHERAPY, COGNITIVE-BEHAVIORAL (10/25/15) INDIVIDUAL PSYCHOTHERAPY, SUPPORTIVE (07/19/15) INJECT/INFUSE NEC (12/18/12) OTHER GROUP THERAPY (12/13/14) PSYCHIA INTERV/EVAL NEC (12/18/12) Family History: States: Unknown Family Hx - Social History Hx Tobacco Use: Yes Hx Alcohol Use: Yes Hx Substance Use: No - Immunization History Hx Tetanus Toxoid Vaccination: No Hx Influenza Vaccination: No Hx Pneumococcal Vaccination: No Review Of Systems Constitutional: Negative for: Fever, Chills Gastrointestinal: Positive for: Abdominal Pain (lower), Other (suprapubic pain) . Negative for: Nausea, Vomiting, Diarrhea Genitourinary: Positive for: Frequency, Other (tinge of blood in urine ). Negative for: Dysuria Neurological: Negative for: Weakness, Numbness Physical Exam - Physical Exam Appears: Non-toxic, No Acute Distress Skin: Normal Color, Warm, Dry Head: Atraumatic, Normacephalic Eye(s): bilateral: Normal Inspection Oral Mucosa: Moist Neck: Normal ROM Chest: Symmetrical, No Tenderness Cardiovascular: Rhythm Regular Respiratory: Normal Breath Sounds, No Decreased Breath Sounds, No Rales, No Rhonchi, No Wheezing Gastrointestinal/Abdominal: Soft, Tenderness (suprapubic), No Mass, No Distention, No Guarding Back: Normal Inspection, No CVA Tenderness Pelvic: Normal Speculum Exam, No Vaginal Bleeding, Vaginal Discharge (white copious amounts), No Cervical Motion Tenderness, No Cervix Open Extremity: Bilateral: Atraumatic, Normal ROM Neurological/Psych: Oriented x3, Normal Speech, Normal Cognition ED Course And Treatment O2 Sat by Pulse Oximetry: 100 (RA) Pulse Ox Interpretation: Normal Medical Decision Making Medical Decision Making: Ordered Urine culture and urinalysis. Administered Pyridium. UA shows blood, no LE or nitrates. Will treat for vaginitis Advise follow up with portal architect Disposition - Disposition [facility] Disposition: HOME/ ROUTINE Disposition Time: 14:59 Condition: STABLE Additional Instructions: Please follow up with your portal architect for further evaluation. lab cultures can take 2-3 days to result You may call [facility] for any assistance [phone]. 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 - Scribe Statement The provider has reviewed the documentation as recorded by the Israel Lopez All medical record entries made by the Damarisibmick were at my direction and personally dictated by me. I have reviewed the chart and agree that the record accurately reflects my personal performance of the history, physical exam, medical decision making, and the department course for this patient. I have also personally directed, reviewed, and agree with the discharge instructions and disposition.
[2017-08-30 14:35] LABS: HCG,QUALITATIVE URINE NEGATIVE (NEGATIVE)
[2017-08-30 14:40] LABS: URINE BILIRUBIN NEGATIVE (NEGATIVE); URINE BLOOD 1+ (NEGATIVE); URINE CLARITY Clear (Clear); URINE COLOR Straw (YELLOW); URINE GLUCOSE (UA) NORMAL (Normal); URINE LEUKOCYTE ESTERASE NEG Leu/uL (Negative); URINE NITRATE NEGATIVE (NEGATIVE); URINE PROTEIN NEGATIVE (NEGATIVE); URINE UROBILINOGEN NORMAL mg/dL (0.2-1.0)
--- NOTE | 2017-08-30 15:05 | C.PDOC ---
Time Seen by Provider: 08/30/17 13:31 Chief Complaint (Nursing): Abdominal Pain Past Medical History Vital Signs: Last Vital Signs Temp 98.2 F 08/30/17 13:12 Pulse 99 H 08/30/17 13:12 Resp 16 08/30/17 13:12 BP 135/86 08/30/17 13:12 Pulse Ox 100 08/30/17 15:04 - Medical History PMH: Anxiety, Arthritis, Asthma, Bipolar Disorder, Depression, Gastritis, Hypercholesterolemia, Kidney Stones Denies: Diabetes, Hepatitis Surgical History: Appendectomy, Carotid Endarterectomy - [facility] Procedures DX ULTRASOUND-HEART (01/21/15) EXTIRPATION OF MATTER FROM R INT CAROTID, OPEN APPROACH (12/03/16) GROUP PSYCHOTHERAPY (07/19/15) INDIVID PSYCHOTHERAP NEC (12/13/14) INDIVIDUAL PSYCHOTHERAPY, COGNITIVE-BEHAVIORAL (10/25/15) INDIVIDUAL PSYCHOTHERAPY, SUPPORTIVE (07/19/15) INJECT/INFUSE NEC (12/18/12) OTHER GROUP THERAPY (12/13/14) PSYCHIA INTERV/EVAL NEC (12/18/12) Family History: States: Unknown Family Hx - Social History Hx Tobacco Use: Yes Hx Alcohol Use: Yes Hx Substance Use: No - Immunization History Hx Tetanus Toxoid Vaccination: No Hx Influenza Vaccination: No Hx Pneumococcal Vaccination: No ED Course And Treatment O2 Sat by Pulse Oximetry: 100 (RA) Disposition - Disposition Disposition: HOME/ ROUTINE Disposition Time: 15:05 Condition: STABLE Instructions: Vaginitis Forms: [employer] (St [place]ian) - POA Present On Arrival: None - Clinical Impression Clinical Impression: Vaginitis
[2017-08-30 15:23] VITALS: BP 135/80; PULSE 78; RESP 20; TEMP 98.6
== END 2017-08-30 15:23 | disposition home or self-care (01) ==
LOC: C.ER 12:56
DX: N76.0 Acute vaginitis (principal)

== ENCOUNTER 2018-03-27 13:25 | Emergency (ER) | payer MEDICAID ==
[2018-03-27 13:25] VITALS: BMI 28.3
[2018-03-27 13:44] VITALS: TEMP 98.9
--- NOTE | 2018-03-27 14:03 | C.PDOC ---
History Of Present Illness 52-year-old female, PMHx includes Anxiety, Hypercholesterolemia and Endarterectomy, presents to the emergency department with complaints of two-day duration of chest tightness, weakness, and dizziness that is described as "feeling like passing out." No vertigo. No falls or trauma. No neck stiffness or fever, chills or night sweats. Patient denies any nausea/vomiting, back pain , sensory/vascular deficit, or any other associated symptoms. No other complaints at this time. PMD Dr Arellano. Time Seen by Provider: 03/27/18 13:41 Chief Complaint (Nursing): Chest Pain History Per: Patient History/Exam Limitations: no limitations Onset/Duration Of Symptoms: Days Current Symptoms Are (Timing): Still Present Severity: Moderate Past Medical History Reviewed: Historical Data, Nursing Documentation, Vital Signs Vital Signs: Last Vital Signs Temp 98.9 F 03/27/18 13:42 Pulse 82 03/27/18 15:08 Resp 18 03/27/18 15:08 BP 112/73 03/27/18 15:08 Pulse Ox 96 03/27/18 16:47 - Medical History PMH: Anxiety, Arthritis, Asthma, Bipolar Disorder, Depression, Gastritis, Hypercholesterolemia, Kidney Stones, Chronic Kidney Disease Surgical History: Appendectomy, Carotid Endarterectomy - [facility] Procedures DX ULTRASOUND-HEART (01/21/15) EXTIRPATION OF MATTER FROM R INT CAROTID, OPEN APPROACH (12/03/16) GROUP PSYCHOTHERAPY (07/19/15) INDIVID PSYCHOTHERAP NEC (12/13/14) INDIVIDUAL PSYCHOTHERAPY, COGNITIVE-BEHAVIORAL (10/25/15) INDIVIDUAL PSYCHOTHERAPY, SUPPORTIVE (07/19/15) INJECT/INFUSE NEC (12/18/12) OTHER GROUP THERAPY (12/13/14) PSYCHIA INTERV/EVAL NEC (12/18/12) Family History: States: No Known Family Hx - Social History Hx Tobacco Use: Yes Hx Alcohol Use: Yes Hx Substance Use: No - Immunization History Hx Tetanus Toxoid Vaccination: No Hx Influenza Vaccination: No Hx Pneumococcal Vaccination: No Review Of Systems Constitutional: Negative for: Fever, Chills Cardiovascular: Positive for: Chest Pain Respiratory: Negative for: Cough, Hemoptysis, SOB with Excertion, Pleuritic Pain , Sputum Gastrointestinal: Negative for: Nausea, Vomiting, Abdominal Pain, Melena, Hematochezia Genitourinary: Negative for: Dysuria, Frequency, Incontinence, Hematuria, Vaginal Discharge, Vaginal Bleeding, Pelvic Pain Musculoskeletal: Negative for: Shoulder Pain Skin: Negative for: Rash Neurological: Positive for: Headache (not worst of life. not suddent in onset.) . Negative for: Weakness, Numbness Physical Exam - Physical Exam Appears: Non-toxic, No Acute Distress Skin: Normal Color, Warm, Dry, No Rash Head: Atraumatic, Normacephalic Eye(s): bilateral: Normal Inspection Nose: Normal Oral Mucosa: Moist Lips: Normal Appearing Neck: Normal ROM, No Decreased ROM, Trachea Midline, No Trachea Deviated, No Midline Cervical Tenderness, No Paracervical Tenderness, No Step Off Deformity, Other (no meningeal signs. R endarectomy scar well healed without crepitus or erythema) Chest: Symmetrical Cardiovascular: Rhythm Regular, No Murmur Respiratory: Normal Breath Sounds, No Accessory Muscle Use Gastrointestinal/Abdominal: Soft, No Tenderness, No Guarding, No Rebound Extremity: Normal ROM, No Deformity Neurological/Psych: Oriented x3, Normal Speech, Normal Cognition, Normal Cranial Nerves, No Cerebellar Signs, Normal Motor, Normal Sensation, Normal Reflexes, No Expressive Aphasia Gait: Steady Extremity: Right: No Drift, Left: No Drift ED Course And Treatment - Laboratory Results Result Diagrams: 03/27/18 15:04 03/27/18 15:04 ECG: Interpreted By Me, Viewed By Me ECG Rhythm: Sinus Tachycardia ECG Interpretation: No Acute Changes Rate From EC O2 Sat by Pulse Oximetry: 96 Pulse Ox Interpretation: Normal (RA) Medical Decision Making Medical Decision Making: Well appearing 52 yr old female p/w lightheadedness, [place], chest pain that feels exactly like how she felt previous to when she had her R endarectomy. Pt notes that she feels worried that she may have to have a R endarectomy. No meningeal signs in my exam or indication of a central vertigio issue. [place] is not worst of life and not sudden in onset. Well appearing with normal neuro and chest / lungs /cardiac exam. Plan: * Bloodwork * Chest X-Ray * EKG * IVF * Reassess and Disposition labs + imaging resulted unremarkable Repeat neuro and cardiac exam unremarkable and unchanged No wheezing on repeat exam Given pts hx of endarectomy i reccomended pt come in to obs for possible CT or US of neck vessels as well as follow up troponin. Pt notes that given her normal labs so far she feels like she is good enough to go home. I informed pt of possibility of or disability from possible UT, stroke or other cause and pt notes that she is aware of the risks and is willing to take those risks. She denies any depression, SI or HI and has a normal affect. Pt signed out AMA. Disposition - Disposition Disposition: AGAINST MEDICAL ADVICE Disposition Time: 16:46 Condition: GOOD Forms: [employer] (Romansh) - Clinical Impression Clinical Impression: Chest pain - Scribe Statement The provider has reviewed the documentation as recorded by the Scribe (Teodoro Joyner) Provider Attestation: All medical record entries made by the Scribe were at my direction and personally dictated by me. I have reviewed the chart and agree that the record accurately reflects my personal performance of the history, physical exam, medical decision making, and the department course for this patient. I have also personally directed, reviewed, and agree with the discharge instructions and disposition.
--- NOTE | 2018-03-27 14:23 | RAD ---
HISTORY: COMPARISON: No prior. TECHNIQUE: Chest PA and lateral FINDINGS: LINES AND TUBES: None. LUNG AND PLEURA: The lungs are hyperinflated and there is peribronchial thickening with chronic changes in both lungs. No pleural effusion or pneumothorax. HEART AND MEDIASTINUM: The heart is not enlarged. The hilar and mediastinal contours are within normal limits. SKELETAL STRUCTURES: The bony structures are within normal limits for the patient's age. VISUALIZED UPPER ABDOMEN: Normal. OTHER FINDINGS: None. IMPRESSION: No active pulmonary disease. COPD.
[2018-03-27] MEDS ORDERED: Sodium Chloride 0.9% 1,000 ML IV SCH (14:30)
[2018-03-27] MEDS ORDERED: Sodium Chloride 0.9% 1,000 ML ONE (14:45)
[2018-03-27 15:08] VITALS: BP 112/73; PULSE 82; RESP 18
[2018-03-27 15:08] LABS: BASO # 0.1 K/uL (0.0-0.2); BASO % 0.9 % (0.0-2.0); EOS # 0.1 K/uL (0.0-0.7); EOS % 0.6 % (0.0-4.0); HEMOGLOBIN 13.1 g/dL (11.0-16.0); LYMPH # 2.3 K/uL (1.0-4.3); LYMPH % 18.9 % (20.0-40.0); MEAN CORPUSCULAR HEMOGLOBIN 29.8 pg (27.0-31.0); MEAN CORPUSCULAR HGB CONC 34.2 g/dL (33.0-37.0); MONO # 0.7 K/uL (0.0-0.8); MONO % 5.6 % (0.0-10.0); RBC 4.38 Mil/uL (3.80-5.20); WHITE BLOOD COUNT 12.1 K/uL (4.8-10.8)
[2018-03-27 15:25] LABS: ALB/GLOB RATIO 1.3 (1.0-2.1); ALT/SGPT 30 U/L (9-52); AST/SGOT 22 U/L (14-36); BLOOD UREA NITROGEN 25 mg/dL (7-17); CALCIUM 9.5 mg/dl (8.6-10.4); GFR NON-AFRICAN AMERICAN > 60
[2018-03-27 16:45] VITALS: O2SAT 96
--- NOTE | 2018-04-01 14:28 | CARD ---
APPROVED REPORT Date of service: 03/27/2018 EKG Measurement Heart [id number] <Conclusion> Normal sinus rhythm Normal ECG
== END 2018-03-27 17:30 | disposition left against medical advice (07) ==
LOC: C.ER 13:25
DX: R07.9 Chest pain, unspecified (principal)
CPT/HCPCS: 71046; 80053; 83735; 84484; 85025; 99284; J7030

== ENCOUNTER 2018-09-03 09:41 | Outpatient (CLI) | payer MEDICAID | END 2018-09-03 09:42 | disposition home or self-care (01) | LOC: C.USIC 09:42 ==

== ENCOUNTER 2018-10-26 09:39 | Outpatient (CLI) | payer MEDICAID | END 2018-10-26 09:40 | disposition home or self-care (01) | LOC: C.LAB 09:39 | DX: R51 Headache (principal) ==

== ENCOUNTER 2018-11-09 14:14 | Outpatient (CLI) | payer MEDICAID | END 2018-11-25 10:58 | disposition home or self-care (01) | LOC: C.MRIC 11-25 10:57 | DX: R51 Headache (principal) ==

== ENCOUNTER 2018-11-09 14:35 | Observation (INO) | payer MEDICAID ==
[2018-11-09 14:36] VITALS: BMI 28.3
--- NOTE | 2018-11-09 15:23 | C.PDOC ---
History Of Present Illness 53 y/o female with a PMHx of high cholesterol, right carotid stenosis, s/p endarterectomy, presents today with c/o chest pain for 6 hours. Patient awoke with chest pain, feels like tightness to the mid-chest, which is non-radiating. Associated with right arm numbness, lightheadedness, and SOB. Patient reports hx of vertigo in the past but states current symptoms are different. Otherwise patient denies any facial droop, slurred speech, confusion, motor weakness, or visual changes. Time Seen by Provider: 11/09/18 15:08 Chief Complaint (Nursing): Dizziness/Lightheaded History Per: Patient History/Exam Limitations: no limitations Onset/Duration Of Symptoms: Days (x 6) Current Symptoms Are (Timing): Still Present Quality: Tightness Past Medical History Reviewed: Historical Data, Nursing Documentation, Vital Signs Vital Signs: Last Vital Signs Temp 98.9 F 11/09/18 15:04 Pulse 88 11/09/18 15:04 Resp 20 11/09/18 15:04 BP 126/78 11/09/18 15:04 Pulse Ox 97 11/09/18 15:04 - Medical History PMH: Anxiety, Arthritis, Asthma, Bipolar Disorder, Depression, Gastritis, Hypercholesterolemia, Kidney Stones, Chronic Kidney Disease Denies: Diabetes, Hepatitis Other PMH: Right carotid stenosis Surgical History: Appendectomy, Carotid Endarterectomy - [facility] Procedures DX ULTRASOUND-HEART (01/21/15) EXTIRPATION OF MATTER FROM R INT CAROTID, OPEN APPROACH (12/03/16) GROUP PSYCHOTHERAPY (07/19/15) INDIVID PSYCHOTHERAP NEC (12/13/14) INDIVIDUAL PSYCHOTHERAPY, COGNITIVE-BEHAVIORAL (10/25/15) INDIVIDUAL PSYCHOTHERAPY, SUPPORTIVE (07/19/15) INJECT/INFUSE NEC (12/18/12) OTHER GROUP THERAPY (12/13/14) PSYCHIA INTERV/EVAL NEC (12/18/12) Family History: States: Unknown Family Hx - Social History Hx Tobacco Use: Yes Hx Alcohol Use: Yes Hx Substance Use: No - Immunization History Hx Tetanus Toxoid Vaccination: No Hx Influenza Vaccination: No Hx Pneumococcal Vaccination: No Review Of Systems Except As Marked, All Systems Reviewed And Found Negative. Constitutional: Negative for: Fever Gastrointestinal: Negative for: Vomiting Physical Exam - Physical Exam Additional Physical Exam Comments: Constitutional: No acute distress. Head: Normocephalic. Atraumatic. Eyes: PERRL. ENT: Moist mucous membranes. Neck: Supple. Old, well-healed surgical scar to right neck. Cardiovascular: Regular rate. Radial pulse 2+ bilaterally. Chest: No tenderness. Respiratory: Clear to auscultation bilaterally. GI: Soft. Nontender. Nondistended. Back: No CVA tenderness. Musculoskeletal: No tenderness or swelling of extremities. Skin: No rash. Neurologic: AAOx3. CN II-XII intact. Motor intact and equal bilaterally x4. Sensation to light touch intact bilaterally. Finger to nose and heal to monreal normal. ED Course And Treatment - Laboratory Results Result Diagrams: 11/09/18 16:10 11/09/18 16:26 O2 Sat by Pulse Oximetry: 97 (RA) Pulse Ox Interpretation: Normal Medical Decision Making Medical Decision Making: Initial Plan: Blood work ordered, including cardiac enzymes. 325mg PO ASA given. EKG, CXR ordered. EKG: NSR @ 74, No ST or T wave changes CXR resulted: Date of service: 11/09/2018 HISTORY: Chest pain COMPARISON: 03/27/2018. FINDINGS: LUNGS: The lungs are well inflated and clear. PLEURA: No pleural effusions or pneumothorax. CARDIOVASCULAR: The heart is normal in size. No aortic atherosclerotic calcifications present. OSSEOUS STRUCTURES: Within normal limits for the patient's age. VISUALIZED UPPER ABDOMEN: Normal. OTHER FINDINGS: None. IMPRESSION: No active pulmonary disease. 1733 Discussed w/ Dr Hunter, medicine on-call, will admit Disposition - Disposition Disposition: HOSPITALIZED Disposition Time: 17:34 Condition: FAIR Forms: [employer] (Czech) - POA Core Measure Indicators: Chest Pain - Clinical Impression Clinical Impression: Chest pain - Scribe Statement The provider has reviewed the documentation as recorded by the Israel Pinzon Provider Attestation: All medical record entries made by the Damarisibmick were at my direction and personally dictated by me. I have reviewed the chart and agree that the record accurately reflects my personal performance of the history, physical exam, medical decision making, and the department course for this patient. I have also personally directed, reviewed, and agree with the discharge instructions and disposition.
[2018-11-09 16:10] LABS: PROTHROMBIN TIME 10.5 SECONDS (9.7-12.2)
[2018-11-09 16:11] LABS: BASO % 0.6 % (0.0-2.0); EOS # 0.1 K/uL (0.0-0.7); EOS % 0.7 % (0.0-4.0); HEMOGLOBIN 13.2 g/dL (11.0-16.0); LYMPH # 2.1 K/uL (1.0-4.3); LYMPH % 17.4 % (20.0-40.0); MEAN CELL VOLUME 89.3 fL (81.0-99.0); MEAN CORPUSCULAR HEMOGLOBIN 29.8 pg (27.0-31.0); MEAN CORPUSCULAR HGB CONC 33.3 g/dL (33.0-37.0); MEAN PLATELET VOLUME 6.8 fL (7.2-11.7); MONO # 0.7 K/uL (0.0-0.8); MONO % 5.5 % (0.0-10.0); NEUT % 75.8 % (50.0-75.0); RBC 4.43 Mil/uL (3.80-5.20); RED CELL DISTRIBUTION WIDTH 13.5 % (11.5-14.5); WHITE BLOOD COUNT 11.9 K/uL (4.8-10.8)
[2018-11-09 16:12] LABS: BASO # 0.1 K/uL (0.0-0.2)
--- NOTE | 2018-11-09 16:29 | RAD ---
Date of service: 11/09/2018 HISTORY: Chest pain COMPARISON: 03/27/2018. FINDINGS: LUNGS: The lungs are well inflated and clear. PLEURA: No pleural effusions or pneumothorax. CARDIOVASCULAR: The heart is normal in size. No aortic atherosclerotic calcifications present. OSSEOUS STRUCTURES: Within normal limits for the patient's age. VISUALIZED UPPER ABDOMEN: Normal. OTHER FINDINGS: None. IMPRESSION: No active pulmonary disease.
[2018-11-09 16:50] LABS: ALB/GLOB RATIO 1.2 (1.0-2.1); ALT/SGPT 12 U/L (9-52); AST/SGOT 41 U/L (14-36); BLOOD UREA NITROGEN 25 mg/dL (7-17); CALCIUM 9.4 mg/dl (8.6-10.4); GFR NON-AFRICAN AMERICAN > 60
[2018-11-09 16:59] LABS: CK-MB < 0.22 ng/mL (0.0-3.38)
--- NOTE | 2018-11-09 19:36 | CP.PCM.HP ---
History of Present Illness - History of Present Illness History of Present Illness: 53 y/o female with a PMHx of high cholesterol, right carotid stenosis, s/p endarterectomy, presents today with c/o chest pain for 6 hours. Patient awoke with chest pain, feels like tightness to the mid-chest, which is non-radiating. Associated with right arm numbness, lightheadedness, and SOB. in 2017 patient had a significant blockage of the right carotid artery and patient underwent an arthrectomy. During that time patient had an echo which showed normal left ejection fraction of 70% and nuclear stress test showed no ischemia. Present on Admission - Present on Admission Any Indicators Present on Admission: No Review of Systems - Review of Systems All systems: reviewed and no additional remarkable complaints except (cp) Past Patient History - Infectious Disease Hx of Infectious Diseases: None - Past Medical History & Family History Past Medical History?: Yes - Past Social History Smoking Status: Heavy Smoker > 10 Cigarettes Daily - CARDIAC Hx Hypercholesterolemia: Yes - PULMONARY Hx Asthma: Yes - RENAL Hx Chronic Kidney Disease: Yes Hx Kidney Stones: Yes - MUSCULOSKELETAL/RHEUMATOLOGICAL Hx Arthritis: Yes - GASTROINTESTINAL Hx Gastritis: Yes - PSYCHIATRIC Hx Anxiety: Yes Hx Bipolar Disorder: Yes Hx Depression: Yes Hx Substance Use: No - SURGICAL HISTORY Hx Appendectomy: Yes Hx Carotid Endarterectomy: Yes - ANESTHESIA Hx Anesthesia: Yes Hx Anesthesia Reactions: No Hx Malignant Hyperthermia: No Meds Allergies/Adverse Reactions: Allergies Allergy/AdvReac Type Severity Reaction Status Date / Time ibuprofen AdvReac NAUSEA Verified 03/27/18 13:44 Physical Exam - Constitutional Appears: Well - Head Exam Head Exam: ATRAUMATIC, NORMAL INSPECTION, NORMOCEPHALIC - Eye Exam Eye Exam: EOMI, Normal appearance, PERRL - ENT Exam ENT Exam: Mucous Membranes Moist, Normal Exam - Neck Exam Neck exam: Positive for: Normal Inspection - Cardiovascular Exam Cardiovascular Exam: REGULAR RHYTHM - GI/Abdominal Exam GI & Abdominal Exam: Normal Bowel Sounds, Soft. absent: Tenderness - Back Exam Back exam: NORMAL INSPECTION - Neurological Exam Neurological exam: Alert, CN II-XII Intact, Normal Gait, Oriented x3, Reflexes Normal Results - Vital Signs Recent Vital Signs: Last Vital Signs Temp 99.1 F 11/09/18 17:55 Pulse 80 11/09/18 17:55 Resp 18 11/09/18 17:55 BP 135/78 11/09/18 17:55 Pulse Ox 97 11/09/18 18:03 - Labs Result Diagrams: 11/09/18 16:10 11/09/18 16:26 Labs: Laboratory Results - last 24 hr 11/09/18 11/09/18 11/09/18 14:56 16:10 16:10 WBC 11.9 H RBC 4.43 Hgb 13.2 Hct 39.6 MCV 89.3 D MCH 29.8 MCHC 33.3 RDW 13.5 Plt Count 359 MPV 6.8 L Neut % (Auto) 75.8 H Lymph % (Auto) 17.4 L Brule % (Auto) 5.5 Eos % (Auto) 0.7 Baso % (Auto) 0.6 Neut # (Auto) 9.0 H Lymph # (Auto) 2.1 Brule # (Auto) 0.7 Eos # (Auto) 0.1 Baso # (Auto) 0.1 PT 10.5 INR 1.0 APTT 31.0 Sodium Potassium Chloride Carbon Dioxide Anion Gap BUN Creatinine Est GFR ( Amer) Est GFR (Non-Af Amer) POC Glucose (mg/dL) 134 H Random Glucose Calcium Total Bilirubin AST ALT Alkaline Phosphatase Total Creatine Kinase CK-MB (Mass) Troponin I Total Protein Albumin Globulin Albumin/Globulin Ratio 11/09/18 16:26 WBC RBC Hgb Hct MCV MCH MCHC RDW Plt Count MPV Neut % (Auto) Lymph % (Auto) Brule % (Auto) Eos % (Auto) Baso % (Auto) Neut # (Auto) Lymph # (Auto) Brule # (Auto) Eos # (Auto) Baso # (Auto) PT INR APTT Sodium 141 Potassium 5.2 Chloride 106 Carbon Dioxide 25 Anion Gap 15 BUN 25 H Creatinine 0.8 Est GFR ( Amer) > 60 Est GFR (Non-Af Amer) > 60 POC Glucose (mg/dL) Random Glucose 105 Calcium 9.4 Total Bilirubin 0.7 AST 41 H D ALT 12 Alkaline Phosphatase 89 Total Creatine Kinase 44 CK-MB (Mass) < 0.22 Troponin I < 0.0120 Total Protein 7.4 Albumin 4.0 Globulin 3.4 Albumin/Globulin Ratio 1.2 Assessment & Plan (1) Chest pain Status: Acute (2) S/P carotid endarterectomy Status: Acute
[2018-11-09 19:50] VITALS: RESP 20
[2018-11-09] MEDS ORDERED: Arformoterol 15 mcg/2 ml Inh Sol IH PRN (20:00)
[2018-11-09] MEDS: Enoxaparin 30 mg Syringe SC SCH (22:57)
[2018-11-10 01:02] LABS: CK-MB 0.23 ng/mL (0.0-3.38)
[2018-11-10 08:33] LABS: CK-MB 0.27 ng/mL (0.0-3.38)
[2018-11-10] MEDS: Enoxaparin 30 mg Syringe SC SCH ×2 (09:55→21:33)
[2018-11-10] MEDS: Budesonide 0.5 mg/2 ml Inhal Susp UD INH SCH ×2 (11:52→19:44)
--- NOTE | 2018-11-10 12:23 | CP.PCM.PN ---
Subjective - Date & Time of Evaluation Date of Evaluation: 11/10/18 Time of Evaluation: 12:22 - Subjective Subjective: NO FURTHER CP VS STABLE P/E NOR TNI NEG SEE ORDERS Objective - Vital Signs/Intake and Output Vital Signs (last 24 hours): Temp Pulse Resp BP Pulse Ox 98.4 F 73 20 125/80 97 11/10/18 07:00 11/10/18 07:00 11/10/18 07:00 11/10/18 09:52 11/10/18 07:00 - Medications Medications: Current Medications Acetaminophen (Tylenol 325mg Tab) 650 mg PO Q6 PRN PRN Reason: Pain, moderate (4-7) Arformoterol Tartrate (Brovana) 15 mcg IH RQ12 PRN PRN Reason: Shortness of Breath Aspirin (Aspirin Chewable) 81 mg PO DAILY [facility] Last Admin: 11/10/18 09:50 Dose: 81 mg Budesonide (Pulmicort Respules) 0.5 mg INH RQ12 ESTEPHANIA Enoxaparin Sodium (Lovenox) 30 mg SC Q12 [facility] Last Admin: 11/10/18 09:55 Dose: Not Given Lorazepam (Ativan) 0.5 mg PO BID PRN PRN Reason: Agitation Last Admin: 11/09/18 21:16 Dose: 0.5 mg Metoprolol Tartrate (Lopressor) 25 mg PO BID [facility] Last Admin: 11/10/18 09:52 Dose: Not Given - Labs Labs: 11/09/18 16:10 11/09/18 16:26 PT 10.5 SECONDS (9.7-12.2) 11/09/18 16:10 INR 1.0 11/09/18 16:10 APTT 31.0 SECONDS (21-34) 11/09/18 16:10 Assessment and Plan (1) Chest pain Status: Acute (2) S/P carotid endarterectomy Status: Acute
--- NOTE | 2018-11-10 12:39 | CARD ---
APPROVED REPORT Date of service: 11/09/2018 EKG Measurement Heart [id number] [id number] <Conclusion> Normal sinus rhythm Normal ECG
[2018-11-10 18:10] LABS: CK-MB 0.23 ng/mL (0.0-3.38)
[2018-11-11 02:41] VITALS: O2SAT 96
[2018-11-11] MEDS: Budesonide 0.5 mg/2 ml Inhal Susp UD INH SCH (07:36)
[2018-11-11 08:38] VITALS: TEMP 98
[2018-11-11] MEDS: Enoxaparin 30 mg Syringe SC SCH (10:03)
[2018-11-11 10:17] VITALS: BP 116/80; PULSE 89
--- NOTE | 2018-11-11 11:28 | CARD ---
APPROVED REPORT Date of service: 11/10/2018 EKG Measurement Heart [id number] <Conclusion> Normal sinus rhythm Normal ECG
--- NOTE | 2018-11-11 11:54 | CARD ---
APPROVED REPORT Date of service: 11/11/2018 EXAM: Two-dimensional and M-mode echocardiogram with Doppler and color Doppler. Other Information Quality : GoodRhythm : INDICATION Dyspnea Chest Pain asthma, smoking RISK FACTORS Hyperlipidemia 2D DIMENSIONS IVSd0.7 (0.7-1.1cm)LVDd3.9 (3.9-5.9cm) PWd0.8 (0.7-1.1cm)LA Hneuhy98 (18-58mL) LVDs2.1 (2.5-4.0cm)FS (%) 45.9 % LVEF (%)75.0 (>50%)LVEF (Queen's)70 % IVC0.00 cm M-Mode DIMENSIONS RVDd1.09 (2.1-3.2cm)Left Atrium (MM)3.43 (2.5-4.0cm) IVSd0.89 (0.7-1.1cm)Aortic Root2.53 (2.2-3.7cm) LVDd4.86 (4.0-5.6cm)Aortic Cusp Exc.1.70 (1.5-2.0cm) PWd0.86 (0.7-1.1cm)FS (%) 35 % LVDs3.14 (2.0-3.8cm)LVEF (%)65 (>50%) Mitral Valve MV E Dkzqtbra62.7cm/sMV A Gotjweib60.7cm/sE/A ratio0.7 TDI Lateral E' Peak V10.09cm/sMedial E' Peak V8.74cm/sE/Lateral E'7.0 E/Medial E'8.1 Tricuspid Valve TR Peak Srrcmczh200cg/sTR Peak Gr.[id number] <Conclusion> tds. nomral size la,lv & ra rv. nomral lv wall motion,thickness & systolic funciton with lvef of 65-70%. lv diastolic dysfunction grade one. normal aortic,mitral,tv & pv. mild tr with normal pulmonary systolic pressures of 30 mm of hg. no pericardial effusion seen. normal size aortic root & ivc.
--- NOTE | 2018-11-11 12:19 | CP.PCM.DIS ---
Provider - Provider Date of Admission: 11/09/18 17:34 Attending physician: Dilan Hunter MD Time Spent in preparation of Discharge (in minutes): 35 Diagnosis - Discharge Diagnosis (1) Chest pain Status: Acute (2) S/P carotid endarterectomy Status: Acute Hospital Course - Lab Results Lab Results: Most Recent Lab Values WBC 11.9 K/uL (4.8-10.8) H 11/09/18 16:10 RBC 4.43 Mil/uL (3.80-5.20) 11/09/18 16:10 Hgb 13.2 g/dL (11.0-16.0) 11/09/18 16:10 Hct 39.6 % (34.0-47.0) 11/09/18 16:10 MCV 89.3 fL (81.0-99.0) D 11/09/18 16:10 MCH 29.8 pg (27.0-31.0) 11/09/18 16:10 MCHC 33.3 g/dL (33.0-37.0) 11/09/18 16:10 RDW 13.5 % (11.5-14.5) 11/09/18 16:10 Plt Count 359 K/uL (130-400) 11/09/18 16:10 MPV 6.8 fL (7.2-11.7) L 11/09/18 16:10 Neut % (Auto) 75.8 % (50.0-75.0) H 11/09/18 16:10 Lymph % (Auto) 17.4 % (20.0-40.0) L 11/09/18 16:10 [place] % (Auto) 5.5 % (0.0-10.0) 11/09/18 16:10 Eos % (Auto) 0.7 % (0.0-4.0) 11/09/18 16:10 Baso % (Auto) 0.6 % (0.0-2.0) 11/09/18 16:10 Neut # (Auto) 9.0 K/uL (1.8-7.0) H 11/09/18 16:10 Lymph # (Auto) 2.1 K/uL (1.0-4.3) 11/09/18 16:10 [place] # (Auto) 0.7 K/uL (0.0-0.8) 11/09/18 16:10 Eos # (Auto) 0.1 K/uL (0.0-0.7) 11/09/18 16:10 Baso # (Auto) 0.1 K/uL (0.0-0.2) 11/09/18 16:10 PT 10.5 SECONDS (9.7-12.2) 11/09/18 16:10 INR 1.0 11/09/18 16:10 APTT 31.0 SECONDS (21-34) 11/09/18 16:10 Sodium 141 mmol/L (132-148) 11/09/18 16:26 Potassium 5.2 mmol/L (3.6-5.2) 11/09/18 16:26 Chloride 106 mmol/L (98-107) 11/09/18 16:26 Carbon Dioxide 25 mmol/L (22-30) 11/09/18 16:26 Anion Gap 15 (10-20) 11/09/18 16:26 BUN 25 mg/dL (7-17) H 11/09/18 16:26 Creatinine 0.8 mg/dL (0.7-1.2) 11/09/18 16:26 Est GFR ( Amer) > 60 11/09/18 16:26 Est GFR (Non-Af Amer) > 60 11/09/18 16:26 POC Glucose (mg/dL) 134 mg/dL (65-110) H 11/09/18 14:56 Random Glucose 105 mg/dL (65-105) 11/09/18 16:26 Calcium 9.4 mg/dl (8.6-10.4) 11/09/18 16:26 Total Bilirubin 0.7 mg/dL (0.2-1.3) 11/09/18 16:26 AST 41 U/L (14-36) H D 11/09/18 16:26 ALT 12 U/L (9-52) 11/09/18 16:26 Alkaline Phosphatase 89 U/L (38-126) 11/09/18 16:26 Total Creatine Kinase 23 U/L (30-135) L 11/10/18 17:34 CK-MB (Mass) 0.23 ng/mL (0.0-3.38) 11/10/18 17:34 Troponin I < 0.0120 ng/mL (0.00-0.120) 11/10/18 17:34 Total Protein 7.4 g/dL (6.3-8.3) 11/09/18 16:26 Albumin 4.0 g/dL (3.5-5.0) 11/09/18 16:26 Globulin 3.4 gm/dL (2.2-3.9) 11/09/18 16:26 Albumin/Globulin Ratio 1.2 (1.0-2.1) 11/09/18 16:26 - Hospital Course Hospital Course: 53 y/o female with a PMHx of high cholesterol, right carotid stenosis, s/p endarterectomy, presents today with c/o chest pain for 6 hours. Patient awoke with chest pain, feels like tightness to the mid-chest, which is non-radiating. Associated with right arm numbness, lightheadedness, and SOB. in 2017 patient had a significant blockage of the right carotid artery and patient underwent an arthrectomy. During that time patient had an echo which showed normal left ejection fraction of 70% and nuclear stress test showed no ischemia. 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
== END 2018-11-11 14:15 | disposition home or self-care (01) ==
LOC: C.ER 14:35 → C.9E 17:34 → C.6T 17:56
PROVIDERS: ADMIT Internal Medicine Cardiovascular Disease; ATTEND Internal Medicine Cardiovascular Disease
DX: R07.89 Other chest pain (principal); J45.909 Unspecified asthma, uncomplicated; N18.9 Chronic kidney disease, unspecified; F31.9 Bipolar disorder, unspecified; F17.210 Nicotine dependence, cigarettes, uncomplicated
CPT/HCPCS: 36415; 71045; 80053; 82550; 82553; 82948; 84484; 85025; 85610; 85730; 93005; 93306; 99285; G0378